=== PATIENT | female | born 1940 ===

== ENCOUNTER 2017-06-26 14:42 | Inpatient (IN) | payer MEDICARE, OTHER ==
--- NOTE | 2017-06-26 17:19 | ED PDOC ---
Arrival/HPI - General Chief Complaint: Trauma Time Seen by Provider: 06/26/17 17:13 Historian: Patient - History of Present Illness Narrative History of Present Illness (Text): 06/26/17 17:13 Patient is not in her room yet. 06/26/17 17:49 Patient is not in the room. Patient is in the bathroom 06/26/17 18:20 This 77 yo female with pmh dm, ht, dvt, s/p left hip surgery, presents to this ED with her son c/o right hip and right shoulder pain X [employer]. Patient ' son was survival specialist. He stated patient was walking in her apartment. It was dark, patient slipped and fell down on her right side. Patient stated she cannot ambulate due to pain. Denies head injury, neck pain, back pain, sob, cp, abdominal pain, rectal bleeding, or dizziness. Time/Duration: Prior to Arrival Quality: Aching Context: Home Past Medical History - Provider Review Nursing Documentation Reviewed: Yes - Infectious Disease Hx of Infectious Diseases: None - Tetanus Immunization Tetanus Immunization: Unknown - Cardiac Hx Cardiac Disorders: Yes Hx Hypertension: Yes Hx Pacemaker: No Other/Comment: 2 stents in her heart - Pulmonary Hx Respiratory Disorders: Yes Hx Asthma: Yes - Neurological Hx Neurological Disorder: No Hx Paralysis: No - HEENT Hx HEENT Disorder: Yes Hx Cataracts: Yes (right) - Renal Hx Renal Disorder: No - Endocrine/Metabolic Hx Endocrine Disorders: Yes Hx Diabetes Mellitus Type 2: Yes - Hematological/Oncological Hx Blood Disorders: Yes Hx Blood Transfusions: Yes Hx Blood Transfusion Reaction: No - Integumentary Hx Dermatological Disorder: No - Musculoskeletal/Rheumatological Hx Musculoskeletal Disorders: Yes Hx Arthritis: Yes Hx Back Pain: Yes - Gastrointestinal Hx Gastrointestinal Disorders: No - Genitourinary/Gynecological Hx Genitourinary Disorders: No - Psychiatric Hx Emotional Abuse: No Hx Physical Abuse: No Hx Substance Use: No - Surgical History Hx Cardiac Catheterization: Yes (2 stents) Hx Musculoskeletal Surgery: Yes (L hip, spinal) Other/Comment: L hip sx. cardiac cath - Anesthesia Hx Anesthesia: Yes Hx Anesthesia Reactions: No Hx Malignant Hyperthermia: No - Suicidal Assessment Feels Threatened In Home Enviroment: No Family/Social History - Physician Review Nursing Documentation Reviewed: Yes Family/Social History: Other (non-contributory) Smoking Status: Never Smoked Hx Alcohol Use: No Hx Substance Use: No Hx Substance Use Treatment: No Allergies/Home Meds Allergies/Adverse Reactions: Allergies No Known Allergies Allergy (Verified 06/26/17 15:31) Home Medications: Home Meds Medication Instructions Recorded Confirmed Alendronate Sodium 70 mg PO MON 12/23/12 06/26/17 Aspirin [Aspir 81] 81 mg PO DAILY 12/23/12 06/26/17 Pregabalin [Lyrica] 75 mg PO PRN PRN 12/23/12 06/26/17 Vitamin B Complex & Vitamin C 1 tab PO DAILY 12/23/12 06/26/17 [Strovite] Atorvastatin Calcium [Lipitor] 40 mg PO DAILY 11/23/15 06/26/17 Calcium Carbonate/Vitamin D 1 tab PO DAILY 11/23/15 06/26/17 [Oyster Shell Calcium/Vitamin D 250 MG-125 Iu] Carvedilol [Coreg] 3.125 mg PO BID 11/23/15 06/26/17 Docusate Sodium [Ricks' Stool 100 mg PO PRN PRN 11/23/15 06/26/17 Softener Laxative] Ergocalciferol (Vitamin D2) 1 cap PO MON 11/23/15 06/26/17 [Vitamin D2] Glimepiride [amaRYL] 2 mg PO BID 11/23/15 06/26/17 Meloxicam [Mobic] 15 mg PO PRN PRN 11/23/15 06/26/17 Valsartan [Diovan] 160 mg PO DAILY 11/23/15 06/26/17 Mirabegron [Myrbetriq] 50 mg PO DAILY 05/04/17 06/26/17 Omeprazole [Prilosec] 40 mg PO QAM 05/04/17 06/26/17 Tamsulosin [Flomax] 0.4 mg PO Q12H 05/04/17 06/26/17 Zolpidem [Ambien] 5 mg PO HS PRN 05/04/17 06/26/17 Review of Systems - Review of Systems Constitutional: Normal. absent: Fatigue, Weight Change, Fevers, Night Sweats Eyes: Normal ENT: Normal Respiratory: Normal. absent: SOB, Cough Cardiovascular: Normal. absent: Chest Pain, Palpitations Gastrointestinal: Normal. absent: Abdominal Pain, Nausea, Vomiting Genitourinary Female: Normal. absent: Dysuria, Frequency, Hematuria Musculoskeletal: Other (see hpi) Skin: Normal. absent: Rash Neurological: Normal. absent: Headache, Dizziness, Gait Changes, Speech Changes , Facial Droop, Disequilibrium, Seizure Endocrine: Normal Hemo/Lymphatic: Normal Psychiatric: Normal Physical Exam Vital Signs Temp Pulse Resp BP Pulse Ox 06/26/17 21:44 98.1 F 90 16 96 06/26/17 19:41 98.6 F 94 H 18 92/54 L 90 L 06/26/17 15:32 98.1 F 98 H 18 85/54 L 100 Temperature: Afebrile Blood Pressure: Normal Pulse: Regular Respiratory Rate: Normal Appearance: Positive for: Well-Appearing, Non-Toxic, Comfortable Pain Distress: None Mental Status: Positive for: Alert and Oriented X 3 - Systems Exam Head: Present: Atraumatic, Normocephalic, Other (no raccon sign. no canales sign ) Pupils: Present: PERRL Extroacular Muscles: Present: EOMI Conjunctiva: Present: Normal Mouth: Present: Moist Mucous Membranes Neck: Present: Normal Range of Motion Respiratory/Chest: Present: Clear to Auscultation, Good Air Exchange. No: Respiratory Distress, Accessory Muscle Use Cardiovascular: Present: Regular Rate and Rhythm, Normal S1, S2. No: Murmurs Abdomen: Present: Normal Bowel Sounds. No: Tenderness, Distention, Peritoneal Signs Back: Present: Normal Inspection. No: CVA Tenderness Upper Extremity: Present: Normal Inspection, NORMAL PULSES, Tenderness (mild tenderness right shoulder. no ecchymosis, swelling or deformity), Neurovascularly Intact, Capillary Refill < 2s. No: Cyanosis, Edema Lower Extremity: Present: Normal Inspection. No: Edema Neurological: Present: GCS=15, CN II-XII Intact, Speech Normal Skin: Present: Warm, Dry, Normal Color. No: Rashes Psychiatric: Present: Alert, Oriented x 3, Normal Insight, Normal Concentration Medical Decision Making ED Course and Treatment: 06/26/17 21:[address] Galeana regarding patient fall, and right hip fracture. He recommended Dr. Beckett Orthopedist, and Dr. Nguyen Cardiology consult. He also recommended DVT prophylaxis, since patient has a PMH DVT. 06/26/17 22:[address] Beckett Orthopbillieist regarding right intertrochanteric fracture of right hip. He said he will see patient tomorrow. 06/26/17 22:[address] Dumont regarding patient had a fall, and she Dx. intertrochanteric fracture. Dr. Beckett is aware. Dr. Rea for cardiology clearance. He recommended admission to medical/surgery Re-evaluation Time: 21:16 Reassessment Condition: Re-examined, Improving,but remains with symptoms - Lab Interpretations Lab Results: 06/26/17 19:39 06/26/17 19:39 Lab Results 06/26/17 19:39: PT 12.4 H, INR 1.15 H, APTT 27.1 06/26/17 19:39: Sodium 133, Potassium 3.8, Chloride 96 L, Carbon Dioxide 28, Anion Gap 13, BUN 26 H, Creatinine 0.8, Est GFR ( Amer) > 60, Est GFR ( Non-Af Amer) > 60, Random Glucose 173 H, Calcium 9.0, Total Bilirubin 0.7, AST 29, ALT 30, Alkaline Phosphatase 56, Lactate Dehydrogenase 610, Total Creatine Kinase 158, Troponin I 0.06 D, NT-Pro-B Natriuret Pep 5730 H, Total Protein 6.9 , Albumin 3.8, Globulin 3.2, Albumin/Globulin Ratio 1.2 06/26/17 19:39: WBC 10.3 D, RBC 3.93, Hgb 10.1 L, Hct 31.4 L, MCV 79.9 L, MCH 25.7, MCHC 32.2, RDW 15.6 H, Plt Count 255, MPV 8.4, Gran % 81.2 H, Lymph % ( Auto) 10.2 L, [place] % (Auto) 8.4 H, Eos % (Auto) 0.1 L, Baso % (Auto) 0.1, Gran # 8.37 H, Lymph # 1.1 L, [place] # 0.9 H, Eos # 0.0, Baso # 0.01 I have reviewed the lab results: Yes Interpretation: Abnormal lab values - RAD Interpretation Narrative RAD Interpretations (Text): 06/26/17 22:37 Right hip x-rays: (+) right intertrochanteric fracture Shoulder x-rays: djd. no fx CXR: NAD Radiology Orders: 06/26/17 18:43 SHOULDER RIGHT [RAD] Stat 06/26/17 18:44 Hip Right [HIP MIN 2V W/ PELVIS RT] [RAD] Stat 06/26/17 18:45 CHEST ONE VIEW [RAD] Stat - EKG Interpretation Interpreted by ED Physician: Yes (NSR@[address] changes) Comparison: No previous EKG avail. - Medication Orders Current Medication Orders: Discontinued Medications Furosemide (Lasix) 40 mg IVP STAT STA Stop: 06/26/17 22:08 Morphine Sulfate (Morphine) 2 mg IVP STAT STA Stop: 06/26/17 18:47 Last Admin: 06/26/17 15:50 Dose: 2 mg Disposition/Present on Arrival - Present on Arrival Any Indicators Present on Arrival: No History of DVT/PE: No History of Uncontrolled Diabetes: Yes Urinary Catheter: No History of Decub. Ulcer: No History Surgical Site Infection Following: None - Disposition Have Diagnosis and Disposition been Completed?: Yes Diagnosis: Intertrochanteric fracture of right femur, History of DVT (deep vein thrombosis ), Elevated brain natriuretic peptide (BNP) level Disposition: HOSPITALIZED Disposition Time: 21:17 Patient Plan: Admission Patient Problems: Current Active Problems Problem Status Onset Intertrochanteric fracture of right femur Acute Condition: STABLE Referrals: Jon Galeana MD [Primary Care Provider] - Follow up with primary Forms: PrePay (Danish)
[2017-06-26] MEDS ORDERED: Morphine 2 mg/ml ISec IVP STA (18:46)
[2017-06-26 19:48] LABS: BASO # 0.01 K/mm3 (0.0-2.0); BASO % 0.1 % (0.0-3.0); EOS % 0.1 % (1.5-5.0); GRAN # 8.37 (1.4-6.5); GRAN % 81.2 % (50.0-68.0); HEMATOCRIT 31.4 % (36.0-48.0); LYMPH # 1.1 (1.2-3.4); LYMPH % 10.2 % (22.0-35.0); MEAN CELL VOLUME 79.9 fl (80.0-105.0); MEAN CORPUSCULAR HEMOGLOBIN 25.7 pg (25.0-35.0); MEAN CORPUSCULAR HGB CONC 32.2 g/dl (31.0-37.0); MEAN PLATELET VOLUME 8.4 fl (7.0-11.0); MONO # 0.9 (0.1-0.6); MONO % 8.4 % (1.0-6.0); RED CELL DISTRIBUTION WIDTH 15.6 % (11.5-14.5); WHITE BLOOD COUNT 10.3 10^3/ul (4.5-11.0)
[2017-06-26 20:00] LABS: INR 1.15 (0.93-1.08); PARTIAL THROMBOPLASTIN TIME 27.1 Seconds (23.7-30.8)
[2017-06-26 20:02] LABS: ALB/GLOB RATIO 1.2 (1.1-1.8); ALKALINE PHOSPHATASE 56 U/L (38-126); ALT/SGPT 30 U/L (7-56); AST/SGOT 29 U/L (14-36); BILIRUBIN,TOTAL 0.7 mg/dL (0.2-1.3); BLOOD UREA NITROGEN 26 mg/dL (7-21); CARBON DIOXIDE 28 mmol/L (21-33); CHLORIDE 96 mmol/L (98-107); GFR AFRICAN-AMERICAN > 60; GLUCOSE,RANDOM 173 mg/dL (70-110); POTASSIUM 3.8 mmol/L (3.6-5.0); SODIUM 133 mmol/L (132-148); TOTAL PROTEIN 6.9 g/dL (5.8-8.3)
[2017-06-26 20:14] LABS: TROPONIN I 0.06 ng/mL
[2017-06-26 23:45] LABS: PH,URINE 5.5 (4.7-8.0); URINE BILIRUBIN SMALL (NEGATIVE); URINE BLOOD NEGATIVE (NEGATIVE); URINE GLUCOSE (UA) NEGATIVE (NEGATIVE); URINE KETONE TRACE mg/dL (NEGATIVE); URINE LEUKOCYTE ESTERASE NEGATIVE Leu/uL (NEGATIVE); URINE PROTEIN 30 mg/dL (<30 mg/dL); URINE UROBILINOGEN 0.2 E.U./dL (<1 E.U./dL)
[2017-06-26 23:46] LABS: URINE APPEARANCE CLEAR (CLEAR); URINE COLOR YELLOW (YELLOW)
[2017-06-27 00:06] LABS: URINE RBC 0 - 2 /hpf (0-2); URINE WBC 0 - 2 /hpf (0-6)
[2017-06-27 00:07] LABS: URINE AMORPHOUS SEDIMENT MODERATE
[2017-06-27 00:22] VITALS: BMI 31.2
[2017-06-27] MEDS ORDERED: Sodium Chloride 0.9% 1,000 ML IV STA (00:48)
--- NOTE | 2017-06-27 01:17 | CP.PCM.HP ---
<SAHARA PATEL - Last Filed: 06/27/17 01:47> History of Present Illness - History of Present Illness History of Present Illness: Mrs. March is a 77yo F with PMH HTN, DM2, ?GERD, DVT (completed Xarelto rx in 2014) and anemia who presents with R hip pain and immobility s/p fall yesterday. The patient's son provided some history as pt is a poor historian, and resident communicated with pt in Turkish language. Per son, the house is dimly lit and so pt slipped and fell as she was walking around the house. Pt herself states that it was a hard fall but denies head trauma or LOC. Pt stated that she fell 3 weeks ago and has been painfully walking around the leg, stating that it's worst when she has to use the bathroom and sit on the toilet and when she lays on her R side and also that she has pain in her R shoulder. Pt also has a hx of a L hip fx s/p ORIF and she still complains of pain to that hip with ambulation. Otherwise, pt denies cp, palpitations, sob, changes in vision or hearing, fever, chills, weakness, urinary or bowel changes. 10-point ROS reviewed and otherwise unremarkable. PMH: HTN, DM2, ?GERD (hiatal hernia w/ ulcerations), DVT (s/p completed rx), anemia (s/p transfusions) PSH: L hip ORIF (s/p fall in [facility] [place] several years ago, surgery done in [place]), ?spinal surgery Meds: as per DEC Allergies: NKDA SHx: lives w/ son (Isaiah Meneses), uses walker to ambulate, denies tobacco/etoh/ drug use PMD: Dr. Galeana Present on Admission - Present on Admission Any Indicators Present on Admission: No History of DVT/PE: Yes History of Uncontrolled Diabetes: No Review of Systems - Review of Systems All systems: reviewed and no additional remarkable complaints except (as per HPI ) Past Patient History - Infectious Disease Hx of Infectious Diseases: None - Tetanus Immunizations Tetanus Immunization: Unknown - Past Social History Smoking Status: Never Smoked Alcohol: None Drugs: Denies Home Situation {Lives}: With Family - CARDIAC Hx Cardiac Disorders: Yes Hx Hypercholesterolemia: Yes Hx Hypertension: Yes - PULMONARY Hx Respiratory Disorders: Yes Hx Asthma: Yes - NEUROLOGICAL Hx Neurological Disorder: No - HEENT Hx HEENT Problems: Yes ("problems seeing" as per son) Hx Cataracts: Yes (right) - RENAL Hx Chronic Kidney Disease: No - ENDOCRINE/METABOLIC Hx Endocrine Disorders: Yes Hx Diabetes Mellitus Type 2: Yes - HEMATOLOGICAL/ONCOLOGICAL Hx Blood Disorders: Yes Hx Anemia: Yes - INTEGUMENTARY Hx Dermatological Problems: No - MUSCULOSKELETAL/RHEUMATOLOGICAL Hx Falls: Yes - GASTROINTESTINAL Hx Gastrointestinal Disorders: No - GENITOURINARY/GYNECOLOGICAL Hx Genitourinary Disorders: No - PSYCHIATRIC Hx Psychophysiologic Disorder: No - SURGICAL HISTORY Hx Surgeries: Yes (left hip repair) Hx Cardiac Catheterization: Yes Hx Open Reduction Internal Fixation: Yes (L hip) - ANESTHESIA Hx Anesthesia: Yes Hx Anesthesia Reactions: No Hx Malignant Hyperthermia: No Meds Allergies/Adverse Reactions: Allergies Allergy/AdvReac Type Severity Reaction Status Date / Time No Known Allergies Allergy Verified 06/26/17 15:31 Physical Exam - Constitutional Appears: Well, No Acute Distress - Head Exam Head Exam: ATRAUMATIC, NORMAL INSPECTION, NORMOCEPHALIC - Eye Exam Eye Exam: EOMI, Normal appearance, PERRL. absent: Conjunctival injection, Nystagmus, Periorbital swelling, Periorbital tenderness Pupil Exam: NORMAL ACCOMODATION - ENT Exam ENT Exam: Mucous Membranes Dry, Normal Exam - Neck Exam Neck exam: Positive for: Normal Inspection - Respiratory Exam Respiratory Exam: Clear to Auscultation Bilateral, NORMAL BREATHING PATTERN. absent: Accessory Muscle Use, Chest Wall Tenderness, Rales, Wheezes, Respiratory Distress - Cardiovascular Exam Cardiovascular Exam: RRR, +S1, +S2, Systolic Murmur (holosystolic 4/6 murmur auscultated at aortic and mitral regions). absent: Gallop, JVD, Rubs - GI/Abdominal Exam GI & Abdominal Exam: Normal Bowel Sounds, Soft. absent: Distended, Guarding, Rebound, Tenderness - Extremities Exam Extremities exam: Positive for: pedal edema (2+), tenderness (R hip region), pedal pulses present. Negative for: calf tenderness, full ROM Additional comments: R leg in frog position (externally rotated and flexed) - Back Exam Back exam: NORMAL INSPECTION. absent: tenderness - Neurological Exam Neurological exam: Alert Additional comments: oriented x2 (person, place but not time; states it's jun 1990) - Psychiatric Exam Psychiatric exam: Normal Affect, Normal Mood - Skin Skin Exam: Normal Color, Warm Results - Vital Signs Recent Vital Signs: Last Vital Signs Temp 98.0 F 06/26/17 23:50 Pulse 84 06/27/17 00:00 Resp 06/27/17 00:12 BP 100/76 06/26/17 23:50 Pulse Ox 99 06/27/17 00:00 - Labs Result Diagrams: 06/26/17 19:39 06/26/17 19:39 Labs: Laboratory Results - last 24 hr 06/26/17 23:28 Urine Color Yellow Urine Appearance Clear Urine pH 5.5 Ur Specific [place] >= 1.030 Urine Protein 30 H Urine Glucose (UA) Negative Urine Ketones Trace H Urine Blood Negative Urine Nitrate Negative Urine Bilirubin Small H Urine Urobilinogen 0.2 Ur Leukocyte Esterase Negative Urine RBC 0 - 2 Urine WBC 0 - 2 Ur Epithelial Cells 3 - 4 Amorphous Sediment Moderate Hyaline Casts 0 - 2 Assessment & Plan - Assessment and Plan (Free Text) Assessment: 77 yo F PMH HTN, DM2, anemia who presents s/p fall with R intertrochanteric fracture Plan: 1. R Hip fracture s/p fall - Hip XRay showed right intertrochanteric fracture. - Shoulder XRay is negative for fx. - Ortho consult, will see pt AM - Pt NPO in case OR tomorrow - neurovascularly intact - pain mgmt: morphine in ED, morphine PRN 2. Systolic murmur - Cardio consulted, recs appreciated 3. Hx HTN - home meds (Coreg and Losartan) 4. Hx DM2 - home meds held - Lispro low ISS - FS qACHS 5. Hx GERD - PTX 6. Anemia, chronic - pt at baseline NPO NS 125 PTX/Heparin Patient was seen, evaluated and d/w attending, Dr. Julia Patel PGY1 - Date & Time Date: 06/27/17 Time: 01:47 <Sean Dumont - Last Filed: 06/27/17 02:10> Results - Vital Signs Recent Vital Signs: Last Vital Signs Temp 98.0 F 06/26/17 23:50 Pulse 84 06/27/17 00:00 Resp 06/27/17 00:12 BP 100/76 06/26/17 23:50 Pulse Ox 99 06/27/17 00:00 - Labs Result Diagrams: 06/26/17 19:39 06/26/17 19:39 Labs: Laboratory Results - last 24 hr 06/26/17 23:28 Urine Color Yellow Urine Appearance Clear Urine pH 5.5 Ur Specific [place] >= 1.030 Urine Protein 30 H Urine Glucose (UA) Negative Urine Ketones Trace H Urine Blood Negative Urine Nitrate Negative Urine Bilirubin Small H Urine Urobilinogen 0.2 Ur Leukocyte Esterase Negative Urine RBC 0 - 2 Urine WBC 0 - 2 Ur Epithelial Cells 3 - 4 Amorphous Sediment Moderate Hyaline Casts 0 - 2 Attending/Attestation - Attestation I have personally seen and examined this patient.: Yes I have fully participated in the care of the patient.: Yes I have reviewed all pertinent clinical information: Yes Notes (Text): 06/27/17 02:08 I agree with the note and exam by the resident with the addition of the following: CC: right leg/hip pain x 3 weeks Patient fell 3 weeks ago, not yesterday as is relayed initially in the note above. Her pain persisted especially with ambulation which was becoming increasingly difficult so the patient came to the ED to seek further treatment. In the ED she was found to have a right inter-trochanteric fracture; she will be admitted with a consult for orthopaedic surgery to be evaluated in the AM.
[2017-06-27] MEDS ORDERED: Morphine 4 mg/ml ISec IVP PRN (01:55)
[2017-06-27] MEDS ORDERED: Morphine 2 mg/ml ISec IVP PRN (01:55)
[2017-06-27] MEDS ORDERED: Sodium Chloride 0.9% 1,000 ML IV SCH ×2 (02:15→09:30)
[2017-06-27 06:14] LABS: HEMATOCRIT 28.1 % (36.0-48.0); MEAN CELL VOLUME 80.7 fl (80.0-105.0); MEAN CORPUSCULAR HEMOGLOBIN 25.3 pg (25.0-35.0); MEAN CORPUSCULAR HGB CONC 31.3 g/dl (31.0-37.0); MEAN PLATELET VOLUME 8.4 fl (7.0-11.0)
[2017-06-27 06:30] LABS: ALKALINE PHOSPHATASE 47 U/L (38-126); ALT/SGPT 24 U/L (7-56); AST/SGOT 38 U/L (14-36); BILIRUBIN,TOTAL 0.6 mg/dL (0.2-1.3); BLOOD UREA NITROGEN 32 mg/dL (7-21); CALCIUM 8.4 mg/dL (8.4-10.5); CARBON DIOXIDE 30 mmol/L (21-33); CHLORIDE 98 mmol/L (95-110); GFR AFRICAN-AMERICAN > 60; GLUCOSE,RANDOM 100 mg/dL (70-110); POTASSIUM 4.1 mmol/L (3.6-5.0); SODIUM 135 mmol/L (132-148); TOTAL PROTEIN 6.2 g/dL (5.8-8.3)
[2017-06-27] MEDS: Insulin Lispro (humaLOG) LOW Coverage SC SCH ×5 (07:56→22:33)
[2017-06-27] MEDS: Multivitamin With Minerals Tab PO SCH (07:58)
--- NOTE | 2017-06-27 08:12 | RAD ---
PROCEDURE: CHEST RADIOGRAPH, 1 VIEW HISTORY: fall COMPARISON: Chest two views 05/04/2017 and angio chest PE protocol 01/18/2016. Chest 10/24/2012 FINDINGS: LUNGS: Clear. No interval infiltrate. Trace discoid atelectasis and scarring left lung base PLEURA: No pneumothorax or pleural fluid seen. CARDIOVASCULAR: Cardiomegaly. Tortuous and atherosclerotic mediastinal vessels -unchanged the 1.2 cm perihilar nodular opacity is stable since 2012. This represents a prominent vessel seen angio CT study OSSEOUS STRUCTURES: Multiple known thoracic compression fractures. Known old bilateral rib fractures Bilateral shoulder arthrosis -high-riding right humeral head consistent with chronic rotator cuff pathology VISUALIZED UPPER ABDOMEN: Normal. OTHER FINDINGS: Probable hiatal hernia IMPRESSION: No interval significant appearing cardiopulmonary pathology. No gross pneumothorax. Patient has known multiple thoracic and bilateral known prior rib fractures.
--- NOTE | 2017-06-27 08:26 | RAD ---
PROCEDURE: Radiographs of the Right Shoulder HISTORY: pain COMPARISON: 05/04/2017 chest x-ray FINDINGS: BONES: Right acromioclavicular joint space narrowing, high-riding humeral head and glenohumeral cystic subarticular arthropathic changes are noted. The cystic changes and ill definition to the glenoid neck impedes optimal evaluation for any superimposed acute on chronic pathology here. Clinical correlation with patient's exam is essential Patient has known right rib fractures unknown thoracic compression vertebrae JOINTS: . Glenohumeral and acromioclavicular joints osteoarthritis. . No dislocation appreciated for the high-riding right humeral head is consistent with chronic rotator cuff tendon pathology SOFT TISSUES: Normal. OTHER FINDINGS: The interstitial markings in bronchovascular markings in the right upper lobe on this exam are more conspicuous could be technical. 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 This cystic arthrosis in the glenoid neck limits optimal evaluation for any acute on chronic pathology here. Clinical correlation with patient's exam is essential if suspect fracture here, consider CT of the right scapula with reconstructions for more sensitive evaluation Patient has known right rib fractures unknown thoracic compression vertebrae
--- NOTE | 2017-06-27 08:43 | RAD ---
PROCEDURE: HISTORY: pain s/p fall COMPARISON: 03/04/2014 TECHNIQUE: AP view of the pelvis and cross-table views obtained. FINDINGS: An interval mildly comminuted right intertrochanteric acute fracture is present The prior left hip fracture transfixed by a compression screw and lateral plate similar in appearance. Here the osseous hypertrophic changes are similar and consistent with bold mildly comminuted fractures surrounding the old left femoral neck/ intertrochanteric fractured site. Heterotopic of bone here is also inferred. No change on the left is noted. IMPRESSION: Interval acute right intertrochanteric mildly comminuted fracture. Old left fracture orthopedic fixation ossific fragments here with heterotopic bone are all similar appearing.
[2017-06-27] MEDS: Calcium-Vit D 250 mg-125 Units Tab UD PO SCH (09:46)
[2017-06-27 10:41] LABS: IRON 21 ug/dL (45-180)
--- NOTE | 2017-06-27 10:47 | CON ---
INPATIENT CONSULT DATE: 06/27/2017 REASON FOR CONSULTATION: Right hip fracture. HISTORY OF PRESENT ILLNESS: This is a 77-year-old female who presented status post fall, who was admitted last night with inability to ambulate and right hip pain. The patient was seen in the emergency room and was diagnosed with a right hip fracture. The patient was subsequently admitted and now presents for further orthopedic evaluation and treatment. PHYSICAL EXAMINATION GENERAL: On exam today, the patient is sleeping, insomnolent. EXTREMITIES: The right lower extremity is slightly shortened and externally rotated. Her thigh is soft and nontender. There is no gross deformity appreciated. She has palpable DP pulse. DIAGNOSTIC DATA: X-ray of the right hip is consistent with right hip intertrochanteric fracture. IMPRESSION: Right hip intertrochanteric fracture. PLAN: At this point, recommendations which were opted, open reduction and internal fixation of the right hip fracture once the patient is medically optimized. The patient is currently being evaluated by the medicine as well as the cardiology services. We will await for medical clearance and possibly plan on scheduling her for surgery later today. Apollo Sharp MD
[2017-06-27 11:23] LABS: INR 1.1 (0.93-1.08); PARTIAL THROMBOPLASTIN TIME 27.1 Seconds (23.7-30.8)
[2017-06-27] MEDS ORDERED: Bupivacaine 0.5% Inj(30mL) ONE (15:22)
[2017-06-27] MEDS ORDERED: Lidocaine 2% Inj (20ml) ONE (16:09)
[2017-06-27] MEDS ORDERED: Propofol 10 mg/ml Inj (20 ML) ONE (16:09)
[2017-06-27] MEDS ORDERED: Rocuronium 10 mg/ml (5 ml) ONE (16:10)
[2017-06-27] MEDS ORDERED: Glycopyrrolate 0.2 mg/ml (2ml vial) ONE (17:34)
[2017-06-27] MEDS ORDERED: Neostigmine Methylsulfate 3mg/3ml Syringe IV ONE (17:34)
[2017-06-27] MEDS ORDERED: Lactated Ringer's 1,000 ML IV SCH (17:52)
[2017-06-27] MEDS: Morphine 2 mg/ml ISec IVP PRN ×3 (17:55→18:35)
--- NOTE | 2017-06-27 17:57 | CARD ---
APPROVED REPORT EKG Measurement Heart [id number] <Conclusion> Normal sinus rhythm Minimal voltage criteria for LVH, may be normal variant Cannot rule out Anteroseptal infarct, age undetermined Abnormal ECG
--- NOTE | 2017-06-27 17:58 | PCM.SURG1 ---
Surgeon's Initial Post Op Note - Surgeon's Notes Surgeon: Irais Sharp MD Plastic Surgery Specialist: Sukh Bustamante PA-C Type of Anesthesia: General Endo Anesthesia Administered By: Dr. Xie Pre-Operative Diagnosis: Right hip intertrochanteric fracture Operative Findings: same Post-Operative Diagnosis: same Operation Performed: RIght hip ORIF Specimen/Specimens Removed: none Estimated Blood Loss: EBL {In ML}: 50 Blood Products Given: N/A Drains Used: No Drains Post-Op Condition: Fair Date of Surgery/Procedure: 06/27/17 Time of Surgery/Procedure: 17:58
[2017-06-27 18:02] LABS: FOLATE > 20.0 ng/mL
[2017-06-27] MEDS ORDERED: Morphine 2 mg/ml ISec ONE ×2 (18:12→18:38)
--- NOTE | 2017-06-27 18:49 | RAD ---
Indication: s/p ORIF, pt in PACU Right hip radiographs Comparison: Right hip with pelvis radiographs performed 06/26/17 Findings: The patient is status post right ORIF of right intertrochanteric fracture. Surgical aimee and subcutaneous emphysema consistent with recent postsurgical status. Alignment appears satisfactory. Partially imaged fixation of the left hip demonstrated. Osseous demineralization. Degenerative changes. Lucent fracture lines remain at the right hip joint. Impression: The patient is status post right ORIF of right intertrochanteric fracture as above.
[2017-06-27] MEDS ORDERED: Oxycodone/Acetaminophen 5/325 mg Tab ONE (18:50)
[2017-06-27] MEDS: Oxycodone/Acetaminophen 5/325 mg Tab PO PRN ×2 (18:55→22:30)
--- NOTE | 2017-06-27 19:05 | CON ---
DATE: 06/27/2017 REASON FOR CONSULTATION: Preop evaluation, risk stratification for right hip surgery. BRIEF CLINICAL HISTORY: This is a 77-year-old female with past medical history significant for diabetes, hypertension, hyperlipidemia, status post PTCA who fell down and sustained a right hip fracture, intertrochanteric, requiring OR internal fixation. The patient's son is at the bedside. Information obtained from the son. Denies any chest pain, shortness of breath, any palpitations recently. PAST MEDICAL HISTORY: Significant for diabetes, hypertension, hyperlipidemia and coronary artery disease, status post PTCA in the past. Significant for arthritis. SURGICAL HISTORY: Significant for left hip OR internal fixation and previous right hip surgery as well. SOCIAL HISTORY: Denies smoking. Denies any history of alcohol abuse. RECENT CARDIAC WORKUP: As follows, the patient had a stress test done by Dr. Yee on 12/27/2015 that shows normal LV function, ejection fraction 69%, no regional wall motion abnormality. There is a medium irreversible defect in the mid inferior. No chest pain. No EKG changes, no wall motion abnormality. Fixed defect. No reversible ischemia noted. Ejection fraction 69% read by Dr. Yee dated 12/28/2015. The patient had echocardiography done 12/27/2015 at [facility] (Formerly [facility]) and mentioned as hypotensive cardiomyopathy, mild to moderate asymmetrical septal hypertrophy. Left ventricular systolic function normal. Ejection fraction 65% to 70%. No evidence of mitral valve prolapse. Mitral regurgitation noted. Mild to moderate right ventricular systolic pressure, 30 to 40. Trace tricuspid regurgitation. CURRENT MEDICATIONS: The patient is taking at home zolpidem, Ambien, vitamin B complex, Lyrica, Prilosec, Mobic, Amaryl, Feosol, vitamin D, Coreg 3.125, atorvastatin and aspirin. ALLERGIES: NO KNOWN DRUG ALLERGIES. REVIEW OF SYSTEMS: As per HPI. PHYSICAL EXAMINATION VITAL SIGNS: Temperature afebrile, heart rate 79, blood pressure 106/57. HEENT: PERRLA. Extraocular muscles intact. NECK: Supple. No carotid bruits or thyromegaly.. CHEST: Clear to auscultation. HEART: S1, S2 regular. ABDOMEN: Soft. EXTREMITIES: Clubbing and cyanosis negative. EKG shows normal sinus LVH, heart rate of 90, poor RR progression. LABORATORY DATA: Blood workup as follows, WBC 8, hemoglobin 8.8, hematocrit 28.1, platelet count 231. Chemistry shows sodium 135, potassium 4, chloride 95, carbon dioxide 30, anion gap of 32, BUN 11, creatinine 0.8. IMPRESSION AND PLAN: A 77-year-old female with past medical history significant for coronary artery disease, diabetes, hypertension, hyperlipidemia, status post left hip surgery, status post fall requiring open reduction and internal fixation because of right hip fracture. Negative stress test dated 12/27/2015. Echo showed preserved LV function. Because of underlying comorbidities , the patient is a high risk for surgery. Discussed with Dr. Sharp, but since the patient has no acute ischemia, no chest pain, no CHF, the patient will undergo surgery with her high-risk surgery. We have risk-benefit ration in favor of having surgery because the patient was bed-bound and can from bedsore, sepsis. Family understands the risk of the procedure as discussed by me and discussed by Dr. Sharp. We will continue perioperative beta-vangie. We will follow with you. Postop, we follow up hemoglobin, we will try to keep hemoglobin around 10. Also maintain IV fluids, continue IV fluids at 100 mL an hour to prevent going into dehydration because the patient has hyperdynamic event given obstructive cardiomyopathy. We will try to prevent dehydration. We will start normal saline at 75 mL an hour. Thank you Dr. Galeana/ for providing the opportunity in taking care of this patient. Postoperative followup hemoglobin, we will try to hemoglobin around 10. Also maintain IV fluids. Continue IV fluid and hydration in order to prevent going into dehydrate because the patient has hyperdynamic ventricle and obstructive cardiomyopathy. We follow with you. Sarahy Nguyen MD
[2017-06-27] MEDS: ceFAZolin 2 GM in Sodium Chloride 0.9% 50 ML IVPB SCH (22:31)
--- NOTE | 2017-06-28 03:41 | OP ---
PROCEDURE DATE: 06/27/2017 PREOPERATIVE DIAGNOSIS: Right hip intertrochanteric fracture. POSTOPERATIVE DIAGNOSIS: Right hip intertrochanteric fracture. PROCEDURE: Open reduction and internal fixation of right hip intertrochanteric fracture. SURGEON: Apollo Sharp MD MIXER OPERATOR TABLETS: Dr. Sharp was assisted by Sierra Bustamante PA-C. Dianna was completely present throughout the entire case and helped with the patient positioning, fracture reduction and wound closure. TYPE OF ANESTHESIA: General. COMPLICATIONS: None. ESTIMATED BLOOD LOSS: 50 mL. IMPLANT: Biomet trochanteric injury nail. INDICATION FOR PROCEDURE: This is a 77-year-old female who presented status post fall with right hip pain, inability to ambulate. Clinical examination was consistent with a short, indurate lower extremity pain with passive range of motion of the hip. Radiographic examination was consistent with acute right intertrochanteric fracture. Recommendations were for open reduction and internal fixation of the fracture once the patient was medically optimized. The risks, benefits and alternatives of the procedure were discussed with the patient and the patient's son and informed consent was obtained. OPERATIVE PROCEDURE: After the surgical site was finally identified in the preoperative holding area, the patient was taken to the operating room and placed supine on the operating table. After administration of general anesthesia, the patient received 2 g of Ancef IV. The patient was positioned on the fracture table. Right lower extremity was placed in the traction boot. Left lower extremity was gently extended away from the operative field. At this point, C-arm image intensifier was brought in and provisional reduction was preformed. This reduction was checked using the image intensifier in both the AP and lateral planes. Satisfied the right lower extremity was then prepped and draped in usual sterile fashion. The bony landmarks were identified at the proximal femur and proximally 2.5 cm incision was made proximal to the tip of the greater trochanter. Through this incision, the guide pin for entry hole was then placed on the tip of the trochanter and inserted into the medullary canal of the proximal femur. Position of the guidewire was checked using image intensifier in both the AP and lateral planes. Satisfied step drill was then used to drill our entry hole and the guide pin was exchanged for smooth-tip guidewire. Position of the guidewire was again confirm using image intensifier both the AP and lateral planes. At this point, the nail was then inserted over the wire and recesses the appropriate depth. This was checked using the C-arm. A second incision was then made along the lateral aspect of the proximal thigh, a hip screw was then placed on the lateral cortex of the proximal femur. A guide pin for hip screw was then inserted in roughly to center-center position of the femoral head. This was confirmed using the image intensifier. The length of our screw was measured and the hole was then drilled. The appropriate length screw was then inserted over the guide pin and the guide pin was removed. Position of the screw was confirmed using the image intensifier. Satisfied the screw was then locked to the nail by screwing down on the step screw on the proximal aspect of the femur. The nail was then locked statically and distally. At this point, outrigger jig was removed and final x-rays were taken confirming excellent fracture reduction and good position of the hardware. All the wounds were then copiously irrigated and closed in the layered fashion. Sterile dressing was applied and the patient was moved from the fracture table. The patient was awakened and taken to the recovery room in stable condition. Apollo Sharp MD
[2017-06-28 06:53] LABS: HEMATOCRIT 32.1 % (36.0-48.0); MEAN CELL VOLUME 83.6 fl (80.0-105.0); MEAN CORPUSCULAR HGB CONC 31.2 g/dl (31.0-37.0); MEAN PLATELET VOLUME 8.8 fl (7.0-11.0); RED CELL DISTRIBUTION WIDTH 16.4 % (11.5-14.5); WHITE BLOOD COUNT 7.8 10^3/ul (4.5-11.0)
[2017-06-28 06:59] LABS: ALB/GLOB RATIO 1.1 (1.1-1.8); ALKALINE PHOSPHATASE 53 U/L (38-126); ALT/SGPT 28 U/L (7-56); AST/SGOT 24 U/L (14-36); BILIRUBIN,TOTAL 0.6 mg/dL (0.2-1.3); BLOOD UREA NITROGEN 27 mg/dL (7-21); CALCIUM 8.4 mg/dL (8.4-10.5); CARBON DIOXIDE 28 mmol/L (21-33); CHLORIDE 101 mmol/L (98-107); CHOLESTEROL 149 mg/dL (130-200); GFR AFRICAN-AMERICAN > 60; GLUCOSE,RANDOM 132 mg/dL (70-110); MAGNESIUM 1.9 mg/dL (1.7-2.2); POTASSIUM 4.3 mmol/L (3.6-5.0); SODIUM 136 mmol/L (132-148); TOTAL PROTEIN 6.2 g/dL (5.8-8.3)
--- NOTE | 2017-06-28 08:55 | CP.PCM.PN ---
Subjective - Date & Time of Evaluation Date of Evaluation: 06/28/17 Time of Evaluation: 08:53 - Subjective Subjective: Pt awake, alert. T 99 R hip : dressing clean and intact NVI distally thigh soft Hg 10 POD#1 PT, DVT prophylaxis D/c planning Objective - Vital Signs/Intake and Output Vital Signs (last 24 hours): Temp Pulse Resp BP Pulse Ox 99.1 F 76 22 115/64 97 06/28/17 08:18 06/28/17 08:18 06/28/17 08:18 06/28/17 08:18 06/28/17 08:18 Intake and Output: 06/28/17 06/28/17 06:59 18:59 Intake Total 720 Output Total 400 Balance 320 - Medications Medications: Current Medications Alendronate Sodium (Fosamax) 70 mg PO Q7D REPLACED BY [facility] Aspirin (Ecotrin) 81 mg PO DAILY REPLACED BY [facility] Last Admin: 06/27/17 09:45 Dose: Not Given Atorvastatin Calcium (Lipitor) 40 mg PO DAILY REPLACED BY [facility] Last Admin: 06/27/17 09:46 Dose: Not Given Calcium/Vitamin D (Oscal-D 250 Mg-125 Units Tab) 1 tab PO DAILY REPLACED BY [facility] Last Admin: 06/27/17 09:46 Dose: Not Given Carvedilol (Coreg) 3.125 mg PO BID REPLACED BY [facility] Last Admin: 06/27/17 10:01 Dose: 3.125 mg Docusate Sodium (Colace) 100 mg PO DAILY PRN PRN Reason: constipation Ergocalciferol (Drisdol 50,000 Intl Units Cap) 1 cap PO MON REPLACED BY [facility] Famotidine (Pepcid) 40 mg PO HS REPLACED BY [facility] Ferrous Sulfate (Feosol) 324 mg PO BID REPLACED BY [facility] Last Admin: 06/27/17 09:37 Dose: Not Given Heparin Sodium (Porcine) (Heparin) 5,000 units SC Q8 REPLACED BY [facility] PRN Reason: Protocol Last Admin: 06/28/17 06:09 Dose: 5,000 units Insulin Human Lispro (Humalog Low) 0 units SC ACHS REPLACED BY [facility] PRN Reason: Protocol Last Admin: 06/27/17 22:33 Dose: Not Given Losartan Potassium (Cozaar) 100 mg PO DAILY REPLACED BY [facility] Last Admin: 06/27/17 10:01 Dose: 100 mg Metoclopramide HCl (Reglan) 10 mg IV ONCE PRN PRN Reason: Nausea/Vomiting Morphine Sulfate (Morphine) 2 mg IVP Q4H PRN PRN Reason: Pain, moderate (4-7) Morphine Sulfate (Morphine) 4 mg IVP Q4H PRN PRN Reason: Pain, severe (8-10) Morphine Sulfate (Morphine) 2 mg IVP Q15M PRN PRN Reason: Pain, moderate (4-7) Last Admin: 06/27/17 18:35 Dose: 2 mg Multivitamins/Minerals (Therapeutic-M Tab) 1 tab PO 0800 REPLACED BY [facility] Last Admin: 06/27/17 07:58 Dose: Not Given Ondansetron HCl (Zofran Tab) 4 mg PO Q8H PRN PRN Reason: Nausea/Vomiting Oxycodone/Acetaminophen (Percocet 5/325 Mg Tab) 1 tab PO Q4H PRN PRN Reason: Pain Stop: 06/30/17 17:52 Last Admin: 06/27/17 22:30 Dose: 1 tab Pregabalin (Lyrica) 75 mg PO DAILY PRN PRN Reason: Pain, moderate (4-7) Tamsulosin HCl (Flomax) 0.4 mg PO Q12 REPLACED BY [facility] Last Admin: 06/27/17 22:30 Dose: 0.4 mg Zolpidem Tartrate (Ambien) 5 mg PO HS PRN; Protocol PRN Reason: Sleep - Labs Labs: 06/28/17 06:30 06/28/17 06:30 PT 11.9 Seconds (9.9-11.8) H 06/27/17 11:00 INR 1.10 (0.93-1.08) H 06/27/17 11:00 APTT 27.1 Seconds (23.7-30.8) 06/27/17 11:00
--- NOTE | 2017-06-28 09:14 | RAD ---
PROCEDURE: Fluoroscopy up to 1 hour HISTORY: O.R.I.F. RIGHT HIP COMPARISON: TECHNIQUE: Fluoroscopy was provided in the operating room. 85.5 seconds of fluoroscopy time. 10 images were submitted FINDINGS: The study shows placement of a compression screw and jeny in the right hip fixating an intertrochanteric fracture. There are no complicating factors. IMPRESSION: As above
[2017-06-28] MEDS: ceFAZolin 2 GM in Sodium Chloride 0.9% 50 ML IVPB SCH (09:50)
[2017-06-28] MEDS: Insulin Lispro (humaLOG) LOW Coverage SC SCH ×3 (09:52→12:51)
[2017-06-28] MEDS: Multivitamin With Minerals Tab PO SCH (09:53)
[2017-06-28] MEDS: Calcium-Vit D 250 mg-125 Units Tab UD PO SCH (09:53)
[2017-06-28] MEDS: Oxycodone/Acetaminophen 5/325 mg Tab PO PRN (12:46)
[2017-06-28] MEDS: Levalbuterol 0.63 MG/3 ML Inhal Soln UD IH SCH (13:35)
--- NOTE | 2017-06-28 16:53 | US ---
HISTORY: Leg pain and swelling. Evaluate for DVT PHYSICIAN(S): Luke El MD. TECHNIQUE: Duplex sonography and color-flow Doppler with graded compression were used to evaluate the deep venous systems of both lower extremities. The right popliteal vein could not be visualized due to surgery FINDINGS: The visualized deep venous systems of both lower extremities are sonographically normal and compressible. Normal wave forms and augmentation are seen. There is no sonographic evidence for deep venous thrombosis in the visualized segments of both lower extremities. IMPRESSION: No sonographic evidence for deep venous thrombosis in the visualized segments of both lower extremities. Limited study.
[2017-06-28] MEDS: Sodium Chloride 0.9% 1,000 ML IV SCH ×2 (18:23→20:26)
--- NOTE | 2017-06-28 20:38 | PN ---
DATE: 06/28/2017 REASON FOR CONSULTATION AND FOLLOWUP: Preop evaluation, risk stratification, status post followup hip surgery. SUBJECTIVE: The patient lying on the bed. Denies any chest pain, but complained of [id number] pain in the operative site. OBJECTIVE: GENERAL: Lying flat on the bed, not in apparent distress. VITAL SIGNS: Temperature afebrile, heart rate is 76, blood pressure is 115/64. HEENT: PERRLA. Extraocular muscles intact. NECK: Supple. No carotid bruit. No thyromegaly. CHEST: Clear to auscultation. HEART: S1 and S2, regular. ABDOMEN: Soft. EXTREMITIES: Clubbing and cyanosis negative. LABORATORY DATA: Blood workup as follows, WBC 7.8, hemoglobin 10, hematocrit 32.1, platelet count 246. Chemistry shows sodium 130, potassium 4.3, chloride 101, carbon dioxide 28, anion gap of 11, BUN 27, creatinine 0.6. IMPRESSION: Status post fall, status post right hip fracture, status post open reduction and internal fixation, anemia. Recent stress test, negative for ischemia, IHSS etiology, preserved left ventricular function, ejection fraction 65% to 70%. Anemia, status post packed red blood cell transfusion. RECOMMENDATIONS: Continue beta-vangie. Continue losartan. Monitor H and H. Continue hydration gentle. We will hydrate and avoid dehydration. We will follow with you. We will put normal saline 50 mL an hour. Thank you Dr. Galeana/ for providing me the opportunity in taking care of the patient, Lydia March. We will follow with you. Sarahy Nguyen MD cc: Lui Taylor MD
[2017-06-29 07:03] LABS: BASO # 0.01 K/mm3 (0.0-2.0); BASO % 0.1 % (0.0-3.0); EOS # 0.2 (0.0-0.7); EOS % 3.4 % (1.5-5.0); GRAN # 4.82 (1.4-6.5); GRAN % 70.5 % (50.0-68.0); HEMATOCRIT 26.3 % (36.0-48.0); LYMPH # 1.2 (1.2-3.4); LYMPH % 17.9 % (22.0-35.0); MEAN CELL VOLUME 83.2 fl (80.0-105.0); MEAN CORPUSCULAR HEMOGLOBIN 26.3 pg (25.0-35.0); MEAN CORPUSCULAR HGB CONC 31.6 g/dl (31.0-37.0); MONO # 0.6 (0.1-0.6); MONO % 8.1 % (1.0-6.0); RED CELL DISTRIBUTION WIDTH 16.8 % (11.5-14.5); WHITE BLOOD COUNT 6.8 10^3/ul (4.5-11.0)
[2017-06-29 07:20] LABS: BLOOD UREA NITROGEN 22 mg/dL (7-21); CALCIUM 8.2 mg/dL (8.4-10.5); CARBON DIOXIDE 29 mmol/L (21-33); CHLORIDE 102 mmol/L (98-107); GFR AFRICAN-AMERICAN > 60; GLUCOSE,RANDOM 194 mg/dL (70-110); MAGNESIUM 1.9 mg/dL (1.7-2.2); PHOSPHOROUS 2.1 mg/dL (2.5-4.5); POTASSIUM 3.6 mmol/L (3.6-5.0); SODIUM 135 mmol/L (132-148)
[2017-06-29] MEDS: Levalbuterol 0.63 MG/3 ML Inhal Soln UD IH SCH ×3 (07:35→19:35)
[2017-06-29] MEDS: Oxycodone/Acetaminophen 5/325 mg Tab PO PRN (09:03)
[2017-06-29 09:20] LABS: HEMATOCRIT 27.4 % (36.0-48.0)
--- NOTE | 2017-06-29 10:17 | PQF ANEMIA ---
This form is a permanent part of the medical record Dr. Galeana, Please specify type and severity of anemia noted in this patient whose H/H dropped to 8.3 after orthopedic surgery and transfused with 1 UPRBC. Is it acute , chronic, acute on chronic, blood loss, other etiology? Clarification of your documentation is requested to better reflect the severity of illness and intensity of treatment of your patient. Indicators present [] Anemia [] Drop in H&H from []___ to []___ [] Hypotension [] GI Bleed [] Transfusion(s) [] Acute bleed other sites [] Tachycardia [] Surgical Procedure Blood Loss (expected not a complication) Other:[] Location in the medical record that reflects the above clinical findings: [] Treatment Provided: [] PHYSICIAN'S RESPONSE Based on your medical judgment of the clinical indicators outlined above, are you treating this patient for a known or suspected: [] Acute blood loss anemia [] Chronic blood loss anemia [] Acute on Chronic blood loss anemia [] Anemia due to malignancy [] Anemia due to chemotherapy or radiation therapy [] Anemia of Chronic Disease, please specify: [] [] Other, please indicate type of anemia []____ [] If Unable to Determine, please check the box, sign and date. Present On Admission (POA) Indicator: [] Present at the time of admission [] Not present at the time of admission [] Clinically Undetermined In responding to this query, please exercise your independent professional judgment. The fact that a question is asked does not imply that any particular answer is desired or expected. Thank you for your clarification on this documentation. If you have any questions please call:[ ] * Thank you, [ ]Kathy Keller [facility] #[id number] [employer] [place]
[2017-06-29] MEDS: Calcium-Vit D 250 mg-125 Units Tab UD PO SCH (12:06)
[2017-06-29] MEDS: Multivitamin With Minerals Tab PO SCH (12:07)
--- NOTE | 2017-06-29 12:43 | PN ---
DATE: 06/28/2017 SUBJECTIVE: The patient is comfortable. No respiratory distress. Complaint of right hip pain. She has no chest pain. No short of breath. Status post transtrochanteric fracture with pin placement. PHYSICAL EXAMINATION: GENERAL: Seems comfortable, alert, awake, and oriented x3. VITAL SIGNS: At that time stable. Temperature 98, heart rate is 71, blood pressure is 111/54, respiration 21, oxygen saturation 96%. HEENT: Head and neck normal. NECK: No JVD. No thyromegaly. CHEST: Clear, good air entry. CARDIAC: First sound and second sound normal with systolic murmur. ABDOMEN: Soft and nontender. EXTREMITIES: No edema. Has SCDs on both lower extremities. LABORATORY STUDIES: White count was 7.8, hemoglobin 10, hematocrit 32, platelets 246. Chemistry noted for sodium 136, potassium 4.6, chloride 101, bicarb 28, BUN 27, creatinine 0.6, blood sugar 132. Hemoglobin A1c is 7.5. IMPRESSION AND PLAN: 1. Status post hip surgery, pin placement for transtrochanteric fracture seems doing okay. Continue pain management as it is. The patient took oxycodone as needed one every 4 hour p.r.n. Continue deep venous thrombosis prophylaxis, sequential compression devices, and heparin subcutaneously. 2. Coronary artery disease, mild hypertrophic obstructive cardiomyopathy, subaortic area. Continue current management. The patient is stable at this time and currently on beta-vangie, Coreg 3.125 b.i.d. 3. Continue Cozaar and Coreg. 4. Chronic back pain, history of hip surgery in the past on the other side and chronic osteoarthritis and seen by Dr. Meneses in the past. Continue her oxycodone as it is. 5. Hypercholesteremia, chronic back pain, chronic osteoarthritis, chronic obstructive pulmonary disease. The patient encouraged to use incentive spirometry. We will add Xopenex to her regimen. Continue IV fluids and we will follow up clinically. The patient will need acute rehab. Jon Galeana MD
--- NOTE | 2017-06-29 13:17 | PN ---
DATE: 06/29/2017 REASON FOR CONSULTATION AND FOLLOWUP: Preop evaluation and postop followup for hip surgery. SUBJECTIVE: The patient is lying flat on the bed. Denies any chest pain, shortness of breath. Son is at the bedside sleeping on the chair. OBJECTIVE: GENERAL: Lying flat on the bed, not in apparent distress. The patient is Yoruba speaking. VITAL SIGNS: Temperature afebrile, heart rate is 71, blood pressure 109/69. HEENT: PERRLA. Extraocular muscles intact. NECK: Supple. No carotid bruit or thyromegaly. CHEST: Clear to auscultation. HEART: S1 and S2 regular. ABDOMEN: Soft. EXTREMITIES: Clubbing and cyanosis negative. LABORATORY DATA: Blood workup as follows: WBC 6.8, hemoglobin 8.2, hematocrit 26.3, platelet count 237. Chemistry shows sodium 131, potassium 3.3, chloride 102, carbon dioxide 39, anion gap of 10, BUN of 22, creatinine of 0.5. IMPRESSION AND PLAN: Status post fall, status post hip fracture, status post open reduction and internal fixation. Patient had a stress test negative for ischemia, preserved left ventricular function, ejection fraction 45% to 50%. IHSS as read by Dr. Yee, history of packed red blood cell transfusion. Postop today hemoglobin 8.3 we will followup, if it goes below 8 consider packed red blood cell transfusion. Avoid hypotension. Avoid dehydration. We will discontinue IV fluid tonight, continue rehab. CVS status is stable. We will follow cardiac workup as planned. Plan to discharge to rehab facility. Sarahy Nguyen MD
[2017-06-30 06:48] LABS: BLOOD UREA NITROGEN 22 mg/dL (7-21); CALCIUM 8.5 mg/dL (8.4-10.5); CARBON DIOXIDE 31 mmol/L (21-33); CHLORIDE 100 mmol/L (98-107); GFR AFRICAN-AMERICAN > 60; GLUCOSE,RANDOM 121 mg/dL (70-110); POTASSIUM 3.9 mmol/L (3.6-5.0); SODIUM 138 mmol/L (132-148)
[2017-06-30 06:55] LABS: BASO # 0.02 K/mm3 (0.0-2.0); BASO % 0.3 % (0.0-3.0); EOS # 0.3 (0.0-0.7); EOS % 3.8 % (1.5-5.0); GRAN # 4.8 (1.4-6.5); GRAN % 72.7 % (50.0-68.0); HEMATOCRIT 34.1 % (36.0-48.0); LYMPH # 1.1 (1.2-3.4); LYMPH % 15.9 % (22.0-35.0); MEAN CELL VOLUME 82.2 fl (80.0-105.0); MEAN CORPUSCULAR HEMOGLOBIN 26.7 pg (25.0-35.0); MEAN CORPUSCULAR HGB CONC 32.6 g/dl (31.0-37.0); MEAN PLATELET VOLUME 9.2 fl (7.0-11.0); MONO # 0.5 (0.1-0.6); MONO % 7.3 % (1.0-6.0); RED CELL DISTRIBUTION WIDTH 16.5 % (11.5-14.5); WHITE BLOOD COUNT 6.6 10^3/ul (4.5-11.0)
[2017-06-30] MEDS: Levalbuterol 0.63 MG/3 ML Inhal Soln UD IH SCH ×2 (08:03→13:15)
[2017-06-30 08:17] VITALS: BP 153/81; PULSE 82; RESP 21; O2SAT 94
[2017-06-30] MEDS: Multivitamin With Minerals Tab PO SCH (08:27)
[2017-06-30 09:54] VITALS: TEMP 98.1
[2017-06-30] MEDS: Calcium-Vit D 250 mg-125 Units Tab UD PO SCH (10:34)
[2017-06-30] MEDS: Oxycodone/Acetaminophen 5/325 mg Tab PO PRN (13:45)
--- NOTE | 2017-07-02 03:55 | PN ---
DATE: 06/29/2017 SUBJECTIVE: The patient is status post hip surgery, seems doing well. Hemoglobin noted to be low, 7.9. The patient has no chest pain, no short of breath. She does have history of coronary artery disease, subaortic stenosis, but clinically stable. No new complaint. PHYSICAL EXAMINATION VITAL SIGNS: On 06/29, temperature is 98, heart rate 83, blood pressure 134/67, respirations 20, saturation 97%. HEENT: Head and neck, normal. No JVD, no thyromegaly. CHEST: Clear. Good air entry. CARDIAC: First sound and second sound normal. ABDOMEN: Soft, obese, nontender. EXTREMITIES: No edema. NEUROLOGIC: Normal. Right hip pain with pain with moving and flexing the hip, severe pain. LABORATORY DATA: White count 6.8, hemoglobin 8.3, hematocrit 26.3, platelets 237. Her chemistry is sodium 138, potassium 3.9, chloride 100, bicarb 31, BUN 22, creatinine 0.7, blood sugar 121. IMPRESSION AND PLAN: 1. Status post hip replacement, continue pain meds. The patient will need acute rehab. 2. Anemia, probably secondary to acute drop of hemoglobin secondary to surgery. The patient does have history of coronary artery disease. We will transfuse 2 units. Repeat CBC in the morning. 3. Coronary artery disease, history of subaortic stenosis, stable. 4. Hypertension. 5. Diabetes. 7. Hypercholesterolemia. 8. Chronic osteoarthritis. 9. Gait disorder. PLAN: Continue current management. Continue GI and DVT prophylaxis. Jon Galeana MD
--- NOTE | 2017-07-02 08:53 | DS ---
HISTORY OF PRESENT ILLNESS: The patient is a 77-year-old female with history of coronary artery disease, hypertrophic subaortic stenosis, osteoporosis, left hip fracture and chronic osteoarthritis. The patient does have gait disorder. The patient fell at home brought in emergency room and found to have right intertrochanteric fracture seen by Dr. Sharp, pin placement and surgery done. The patient seems tolerated surgery well, no complications, found to have low hemoglobin, 2 units of blood transfusion was given. The patient seems doing well, hemodynamically stable. No chest pain. No short of breath. Has been maintained on DVT prophylaxis, heparin and SCDs seems doing well and will be transferred to [facility] for rehab. PHYSICAL EXAMINATION: VITAL SIGNS: Temperature 98.8, heart rate 80, blood pressure 156/94 and respirations 18. HEAD AND NECK: Normal. No JVD. No thyromegaly. CHEST: Clear. Good air entry. CARDIAC: First and second sound normal with systolic murmur. ABDOMEN: Soft and nontender. EXTREMITIES: No edema. Right hip severe pain due to recent surgery. NEUROLOGIC: Cannot move all extremities. LABORATORY DATA: Sodium 138, potassium 3.9, chloride 100, bicarb 21, BUN 22, creatinine 0.7 and blood sugar 121. White count 6.6, hemoglobin 11.1, hematocrit 34.1 and platelet is 261. DISCHARGE DIAGNOSES: 1. Right hip intertrochanteric fractures. 2. Hypertension. 3. Coronary artery disease, subaortic stenosis. 4. Osteoporosis. 5. Chronic osteoarthritis, gait disorder. 6. Anemia, requiring transfusions. 7. Diabetes type 2. PLAN: Continue current treatment. Followup clinically, transfer to [facility] for acute rehab. Jon Galeana MD
[2017-07-02] MEDS ORDERED: Ergocalciferol 50,000 Intl Units Cap PO SCH (10:00)
== END 2017-06-30 17:09 | DRG 481 ==
LOC: ED 14:42 → ERH 22:28 → 3RNO 06-27 00:03
PROVIDERS: ADMIT Internal Medicine; ATTEND Internal Medicine
PROC: 30233N1 Transfusion of Nonautologous Red Blood Cells into Peripheral Vein, Percutaneous Approach (ICD-10-PCS; 2017-06-27)
PROC: 0QS604Z Reposition Right Upper Femur with Internal Fixation Device, Open Approach (ICD-10-PCS; principal; 2017-06-27 16:00)
DX: S72.141A Displaced intertrochanteric fracture of right femur, initial encounter for closed fracture (principal); I42.1 Obstructive hypertrophic cardiomyopathy; J44.9 Chronic obstructive pulmonary disease, unspecified; D62 Acute posthemorrhagic anemia; E11.9 Type 2 diabetes mellitus without complications; I10 Essential (primary) hypertension; W01.0XXA Fall on same level from slipping, tripping and stumbling without subsequent striking against object, initial encounter; E78.5 Hyperlipidemia, unspecified; G89.29 Other chronic pain; M81.0 Age-related osteoporosis without current pathological fracture; E78.00 Pure hypercholesterolemia, unspecified; Y92.009 Unspecified place in unspecified non-institutional (private) residence as the place of occurrence of the external cause; Y93.01 Activity, walking, marching and hiking; I25.10 Atherosclerotic heart disease of native coronary artery without angina pectoris; I34.0 Nonrheumatic mitral (valve) insufficiency; K21.9 Gastro-esophageal reflux disease without esophagitis; Z74.01 Bed confinement status; Z79.82 Long term (current) use of aspirin; Z79.899 Other long term (current) drug therapy; Z86.718 Personal history of other venous thrombosis and embolism; Z91.81 History of falling; Z98.61 Coronary angioplasty status; M19.90 Unspecified osteoarthritis, unspecified site; R26.9 Unspecified abnormalities of gait and mobility